=== PATIENT | male | born 1995 | race Caucasian/White ===

== ENCOUNTER 2017-06-17 17:09 | Emergency (ER) | payer OTHER ==
[2017-06-17 17:35] VITALS: BP 130/78; PULSE 72; TEMP 98.3; BMI 21.6
--- NOTE | 2017-06-17 17:46 | PDOC ---
History of Present Illness - General Chief Complaint: Injury Stated Complaint: RIGHT WRIST INJURY AT WORK Time Seen by Provider: 06/17/17 17:15 History Source: Patient Exam Limitations: No Limitations - History of Present Illness Initial Comments: 06/17/17 17:40 21y M no pmhx presents with complaint of R arm pain/tingling. 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 When he woke up this afternoon from his sleep, he noticed his arm was tingling from the armpit down to his hand, mostly on the volar/medial aspect of his arm. Pt denies any loss of sensation, weakness, fever/chills, neck pain, headache. Pt states he usually sleeps on his left arm with his R arm splayed out. No prior history of these symptmos in the past. No injuries/falls, accidents. Past History - Past Medical History Allergies/Adverse Reactions: Allergies Allergy/AdvReac Type Severity Reaction Status Date / Time Sweet Potato Allergy Severe Difficulty Verified 06/17/17 17:12 Breathing Home Medications: Ambulatory Orders NK [No Known Home Medication] 06/17/17 - Suicide/Smoking/Psychosocial Hx Smoking History: Never smoked Have you smoked in the past 12 months: No Information on smoking cessation initiated: No Hx Alcohol Use: Yes (SOCIAL) Drug/Substance Use Hx: No Substance Use Type: None Review of Systems - Review of Systems Able to Perform ROS?: Yes Comments:: 06/17/17 17:43 Constitutional - no reported Fever, Chills, HEENT: no reported vision changes, sore throat Respiratory: no reported cough, sob, hemoptysis Cardiac: no reported chest pain, palpitations, light headedness, leg swelling Abd/GI: no reported abd pain, nausea, vomiting, blood per rectum, melena, diarrhea : no reported dysuria, frequency, discharge Musculskelatal - +R wrist pain no reported back pain, joint swelling skin - no reported bruising, erythema, rash neurological: +R arm tingling no reported headache, numbness, focal weakness, ataxia, hematologic: no reported anemia, easy bruising, easy bleeding *Physical Exam - Vital Signs Last Vital Signs Temp Pulse Resp BP Pulse Ox 98.3 F 72 16 130/78 100 06/17/17 17:12 06/17/17 17:12 06/17/17 17:12 06/17/17 17:12 06/17/17 17:12 - Physical Exam Comments: 06/17/17 17:44 GENERAL: The patient is awake, alert, and fully oriented, Nontoxic - in no acute distress. HEAD: Normocephalic, atraumatic. EYES: extraocular movements intact, sclera anicteric, conjunctiva clear. ENT: Normal voice, Moist mucous membranes. NECK: Normal range of motion, supple EXTREMITIES: Normal range of motion, no edema. no focal bony or soft tissue tenderness, no swellnig or erythema noted. NEUROLOGICAL: No facial assymetry, Normal speech, sensation intact/symmetric in upper extremities across all dtermatomes. elbow flexion/extension intact and symmetric, wrist flexion/extension symmetric b/l PSYCH: Normal mood, normal affect. SKIN: Warm, Dry, normal turgor, Medical Decision Making - Medical Decision Making 06/17/17 17:45 suspect neuropathy possibly due to sleep position less likely nerve compression when he was carrying boxes around. will recommend supportive care pmd fu in a few days for reevaluation I discussed the physical exam findings, ancillary test results and final diagnoses with the patient. I answered all of the patient's questions. The patient was satisfied with the care received and felt comfortable with the discharge plan and treatment plan. The patient will call their primary care physician within 24 hours to arrange follow-up and will return to the Emergency Department with any new, persistent or worsening symptoms. *DC/Admit/Observation/Transfer Diagnosis at time of Disposition: Numbness and tingling of right upper extremity - Discharge Dispostion Disposition: HOME Condition at time of disposition: Stable Admit: No - Referrals Referrals: Adan Morales [Other] - Patient Instructions Printed Discharge Instructions: Peripheral Neuropathy Additional Instructions: I suspect that you're symptoms are due to a neuropathy possibly due to your sleep position. Rest, take Motrin or Tylenol for your wrist pain your symptoms should improved after a day or 2. After symptoms persists or you have any neck pain, numbness, tingling, weakness or other concerns please return to the emergency department or see your primary care doctor. Return to the emergency department immediately with ANY new, persistent or worsening symptoms. You MUST call and follow up with Dr. Morales in 3-4 days for further evaluation of your symptoms. Results were discussed with you. Please make sure your doctor reviews the results of your emergency evaluation.
== END 2017-06-17 18:01 | disposition home or self-care (01) ==
LOC: FER 17:09
DX: R20.2 Paresthesia of skin (principal); R20.0 Anesthesia of skin
CPT/HCPCS: 99281-25